=== PATIENT | male | born 2000 | race African-American/Black ===

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

== ENCOUNTER 2020-12-31 17:52 | Emergency (ER) | payer MEDICAID ==
[~2020-12-31] VITALS: Ht 188 cm; Wt 78.5 kg
[2020-12-31] MEDS ORDERED: ONDANSETRON HCL 4 MG/2 ML VIAL ONE (18:54)
[2020-12-31] MEDS ORDERED: HYDROmorphone HCL 2 MG/ML VL ONE (18:54)
[2020-12-31] MEDS ORDERED: HYDROmorphone HCL 2 MG/ML VL IV ONE (19:00)
[2020-12-31] MEDS ORDERED: ONDANSETRON HCL 4 MG/2 ML VIAL IV ONE (19:00)
[2020-12-31] MEDS ORDERED: TETANUS-DIPTH-ACEL PERTUSSIS 0.5ML SYR Tdap IM ONE (19:00)
[2020-12-31] MEDS ORDERED: IOHEXOL 300 MG/ML 100ML BOTTLE IJ ONE (19:14)
[2020-12-31 20:13] LABS: Basophils # (auto) 0 10 ^3/uL (0-0.2); Basophils % (auto) 0.5 % (0.0-2.0); Eosinophils # (auto) 0 10 ^3/uL (0-0.8); Eosinophils % (auto) 0.1 % (0.0-7.0); Hematocrit 43.5 % (41.0-53.0); Hemoglobin 14.7 g/dL (13.5-17.5); Lymphocytes % (auto) 14.6 % (10.0-50.0); Mean Corpuscular Hemoglobin 33.9 pg (28.0-32.0); Mean Corpuscular Hgb Conc. 33.7 g/dL (32.0-36.0); Mean Corpuscular Volume 100.8 fL (80.0-100.0); Monocytes # (auto) 0.5 10 ^3/uL (0-1.3); Monocytes % (auto) 6.7 % (0.0-12.0); Neutrophils # (auto) 5.6 10 ^3/uL (1.6-8.6); Neutrophils % (auto) 78.1 % (37.0-80.0); Nucleated Red Blood Cells % 0.1 %; Red Blood Cells 4.32 10^6/uL (4.5-5.90); Red Cell Distribution Width 12.9 % (11.8-14.3); White Blood Cell 7.2 10^3/uL (4.4-10.8)
[2020-12-31 20:28] LABS: BUN/Creatinine Ratio 4.8; Calcium 8.5 mg/dL (8.5-10.1); Potassium 3.9 mmol/L (3.5-5.1)
[2020-12-31 20:37] LABS: Bilirubin, Total 0.7 mg/dL (0.2-1.0); INR 1.06 (0.9-1.15); Total Protein 6.8 g/dL (6.4-8.2)
[2020-12-31] MEDS ORDERED: LIDOCAINE 1% HCL (LOCAL ANESTH.) INJ 20ML MDV ID ONE (20:45)
[2021-01-01 00:01] VITALS: BP 141/81
== END 2021-01-01 00:10 | disposition home or self-care (01) ==
LOC: EDBD 17:52 → ER 18:07
DX: S41.011A Laceration without foreign body of right shoulder, initial encounter (principal); S46.821A Laceration of other muscles, fascia and tendons at shoulder and upper arm level, right arm, initial encounter; Y08.89XA Assault by other specified means, initial encounter; Y93.01 Activity, walking, marching and hiking; Y92.89 Other specified places as the place of occurrence of the external cause; Y99.8 Other external cause status
CPT/HCPCS: 12004; 36415; 71045; 71260; 73201; 80053; 85025; 85610; 96374; 96375; 99285; J1170; J2405; J7030; Q9967

== ENCOUNTER 2021-03-11 13:41 | Emergency (ER) | payer MEDICAID ==
[~2021-03-11] VITALS: Ht 188 cm; Wt 72.6 kg
[2021-03-11 15:39] VITALS: BP 130/73
== END 2021-03-11 15:50 | disposition home or self-care (01) ==
LOC: ER 13:43
DX: S41.011D Laceration without foreign body of right shoulder, subsequent encounter (principal); X58.XXXD Exposure to other specified factors, subsequent encounter